=== PATIENT | female | born 1990 | race African-American/Black ===

== ENCOUNTER 2020-03-02 07:20 | Emergency (ER) | payer MEDICAID ==
[~2020-03-02] VITALS: Ht 160 cm; Wt 59.0 kg
[~2020-03-02 07:20] MED LIST: ALBU18HF2 IH; ALBU6.7H9
[2020-03-02 07:57] VITALS: BP 134/82
[2020-03-02] MEDS ORDERED: ACETAMINOPHEN 325MG TABLET PO ONE (08:15)
== END 2020-03-02 08:56 | disposition home or self-care (01) ==
LOC: ER 07:36
DX: B34.9 Viral infection, unspecified (principal); J45.909 Unspecified asthma, uncomplicated; Z20.828 Contact with and (suspected) exposure to other viral communicable diseases
CPT/HCPCS: 93005; 99284; C9803; U0003; 99283